=== PATIENT | female | born 1950 | race Caucasian/White ===

== ENCOUNTER 2017-10-02 19:10 | Emergency (ER) | payer MEDICARE, OTHER ==
[~2017-10-02] VITALS: Ht 539.5 cm; Wt 65.0 kg
[~2017-10-02 19:10] MED LIST: ONDA4TAB6 PO
[2017-10-02 19:25] VITALS: BP 144/76
[2017-10-02] MEDS ORDERED: ketorolac trometh inj. 60 MG/2 ML VIAL IM ONE (20:00)
[2017-10-02] MEDS ORDERED: TRAM50TA2 PO (20:01)
[2017-10-02] MEDS ORDERED: CYCL-1 PO (20:01)
== END 2017-10-02 20:15 | disposition home or self-care (01) ==
LOC: ER 19:11
DX: M54.9 Dorsalgia, unspecified (principal); M62.830 Muscle spasm of back; G43.909 Migraine, unspecified, not intractable, without status migrainosus; E78.00 Pure hypercholesterolemia, unspecified; E11.9 Type 2 diabetes mellitus without complications; G89.29 Other chronic pain; Z90.49 Acquired absence of other specified parts of digestive tract; Z90.710 Acquired absence of both cervix and uterus; Z98.890 Other specified postprocedural states
CPT/HCPCS: 96372; 99283; J1885